=== PATIENT | male | born 1995 | race African-American/Black ===

== ENCOUNTER 2019-07-20 18:30 | Emergency (ER) | payer BC ==
[2019-07-20 18:38] VITALS: BP 142/85; PULSE 95; BMI 28.4
[2019-07-20] MEDS ORDERED: ACETAMINOPHEN 325 MG TABLET (FP) PO ONE (18:39)
[2019-07-20] MEDS ORDERED: ACETAMINOPHEN 325 MG TABLET (FP) ONE (18:40)
[2019-07-20] MEDS ORDERED: AMOXICILLIN 500 MG CAPSULE (FP) PO ONE (19:44)
[2019-07-20] MEDS ORDERED: AMOXICILLIN 250 MG CAPSULE ONE (19:47)
[2019-07-20 19:57] VITALS: TEMP 100
--- NOTE | 2019-07-20 22:20 | PDOC ---
Documentation entered by [employer] SCRIBE, acting as scribe for Alexandra Kwong MD. Alexandra Kwong MD: This documentation has been prepared by the Aristeo mckenzie Maria, SCRIBE, under my direction and personally reviewed by me in its entirety. I confirm that the documentation accurately reflects all work, treatment, procedures, and medical decision making performed by me. History of Present Illness - General Chief Complaint: Sore Throat Stated Complaint: FEVER, SORE THROAT Time Seen by Provider: 07/20/19 19:07 History Source: Patient - History of Present Illness Initial Comments: 07/20/19 20:03 Patient is a 23 year old male with history of frequent strep pharyngitis as an adult but no other significant medical issues, presents to the emergency department with a sore throat for the last few days. Patient states he has had an associated fever, chills, a runny nose, and a dry non productive cough since Monday. Patient states he took robitussin and 200 mg of ibuprofen with no sign of relief prompting him to the ER. Patient states he has a history of getting strep throat at least 3 times a year. 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 He denies any recent nausea, vomiting, diarrhea or constipation. He denies any recent chest pain or shortness of breath. He denies any recent dysuria, frequency, urgency or hematuria. Allergies: NKA Past surgical history: None reported. Social history: Nonsmoker. Denies EtOH use and recreational drug use. Past History - Past Medical History Allergies/Adverse Reactions: Allergies Allergy/AdvReac Type Severity Reaction Status Date / Time No Known Allergies Allergy Verified 07/20/19 18:32 Home Medications: Ambulatory Orders Amoxicillin - [Amoxicillin 500mg Capsule -] 500 mg PO TID #30 capsule 07/20/19 COPD: No Other medical history: pt denies - Psycho Social/Smoking Cessation Hx Smoking History: Never smoked Have you smoked in the past 12 months: No Information on smoking cessation initiated: No Hx Alcohol Use: No Review of Systems - Review of Systems Able to Perform ROS?: Yes Comments:: 07/20/19 20:04 GENERAL/CONSTITUTIONAL: + fever or chills. No weakness. HEAD, EYES, EARS, NOSE AND THROAT: +sore throat. No change in vision. No ear pain or discharge. CARDIOVASCULAR: No chest pain or shortness of breath. RESPIRATORY:+ cough. No wheezing, or hemoptysis. GASTROINTESTINAL: No nausea, vomiting, diarrhea or constipation. GENITOURINARY: No dysuria, frequency, or change in urination. MUSCULOSKELETAL: No joint or muscle swelling or pain. No neck or back pain. SKIN: No rash NEUROLOGIC: No headache, vertigo, loss of consciousness, or change in strength/ sensation. ENDOCRINE: No increased thirst. No abnormal weight change. HEMATOLOGIC/LYMPHATIC: No anemia, easy bleeding, or history of blood clots. ALLERGIC/IMMUNOLOGIC: No hives or skin allergy. *Physical Exam - Vital Signs Last Vital Signs Temp Pulse Resp BP Pulse Ox 101.2 F H 95 H 18 142/85 98 07/20/19 18:30 07/20/19 18:30 07/20/19 18:30 07/20/19 18:30 07/20/19 18:30 - Physical Exam 07/20/19 20:04 GENERAL: Awake, alert, and fully oriented, in no acute distress HEAD: No signs of trauma EYES: PERRLA, EOMI, sclera anicteric, conjunctiva clear ENT: +erythema , mild edema in oropharynx , right > left.; No evidence of peritonsillar abscess; scattered exudates Moist mucosa. NECK: Normal ROM, supple; moderately edematous, slightly tender anterior cervical lymph nodes; no JVD or masses LUNGS: Breath sounds equal, clear to auscultation bilaterally. No wheezes, and no crackles HEART: Regular rate and rhythm, normal S1 and S2, no murmurs, rubs or gallops ABDOMEN: Soft, nontender, normoactive bowel sounds. No guarding, no rebound. No masses EXTREMITIES: Normal range of motion, no edema. No clubbing or cyanosis. No cords, erythema, or tenderness NEUROLOGICAL: Cranial nerves II through XII grossly intact. Normal speech, normal gait SKIN: Warm, Dry, normal turgor, no rashes or lesions noted. 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 Exam as noted. Quick strep positive for strep Since patient states that he usually receives amoxicillin without adverse effects and appears to resolve his infection quickly, amoxicillin 500 mg 3 times a day will be prescribed for 10 days. First dose given here in the emergency room. The patient has not been seen by an ear nose and throat doctor in the past regarding his frequent strep pharyngitis episodes. Referral to given to the patient. He should return to the ER if he has high fever, marked difficulty in swallowing He should followup with his doctor within 3-4 days Discharge - Discharge Information Problems reviewed: Yes Clinical Impression/Diagnosis: Strep pharyngitis Condition: Stable Disposition: HOME - Additional Discharge Information Prescriptions: Amoxicillin - [Amoxicillin 500mg Capsule -] 500 mg PO TID #30 capsule - Follow up/Referral Referrals: Javi Skelton MD [Staff Physician] - 14 days - Patient Discharge Instructions Patient Printed Discharge Instructions: Strep Throat Additional Instructions: Rest; drink plenty of fluids Amoxicillin 500 mg 3 times a day for 10 days Alternate Motrin with Tylenol as needed for fever/pain Return to ER if you have extreme difficulty in swallowing, difficulty breathing or sustained high fever Follow-up with your general doctor within the next 3 to 4 days Consult with ENT doctor (Dr. Skelton)within the next few weeks as discussed - Post Discharge Activity
== END 2019-07-20 19:55 | disposition home or self-care (01) ==
LOC: FER 18:30
DX: J02.0 Streptococcal pharyngitis (principal)
CPT/HCPCS: 87880; 99283-25